=== PATIENT | female | born 1985 | race Hispanic/Latino ===

== ENCOUNTER 2017-09-15 12:33 | Emergency (ER) | payer MEDICAID ==
[2017-09-15 12:51] VITALS: BP 147/74; PULSE 85; RESP 16; TEMP 98.3; O2SAT 98
--- NOTE | 2017-09-15 13:12 | ED PDOC ---
Arrival/HPI - General Chief Complaint: Eye Problem Time Seen by Provider: 09/15/17 13:11 Historian: Patient - History of Present Illness Narrative History of Present Illness (Text): 09/15/17 13:11 32 y/o female, no significant pmh, nkda, c/o Past Medical History - Psychiatric Hx Substance Use: No Family/Social History Smoking Status: Light Smoker < 10 Cigarettes Daily Hx Alcohol Use: Yes Frequency of alcohol use: Socially Hx Substance Use: No Allergies/Home Meds Allergies/Adverse Reactions: Allergies No Known Allergies Allergy (Verified 09/15/17 12:47) Home Medications: Home Meds Medication Instructions Recorded Confirmed No Known Home Med 09/15/17 09/15/17 Physical Exam Vital Signs Temp Pulse Resp BP Pulse Ox 09/15/17 12:48 98.3 F 85 16 147/74 98 Disposition/Present on Arrival - Present on Arrival History of DVT/PE: No History of Uncontrolled Diabetes: No Urinary Catheter: No History of Decub. Ulcer: No History Surgical Site Infection Following: None - Disposition
== END 2017-09-15 13:38 | disposition left against medical advice (07) ==
LOC: ED 12:33
DX: Z02.89 Encounter for other administrative examinations (principal); Z00.00 Encounter for general adult medical examination without abnormal findings

== ENCOUNTER 2017-09-15 13:51 | Emergency (ER) | payer MEDICAID ==
[2017-09-15 14:02] VITALS: BMI 24.7
[2017-09-15 14:04] VITALS: BP 134/71; PULSE 88; RESP 18; TEMP 98.7; O2SAT 99
--- NOTE | 2017-09-15 14:15 | ED PDOC ---
Arrival/HPI - General Chief Complaint: Eye Problem Time Seen by Provider: 09/15/17 14:10 Historian: Patient - History of Present Illness Narrative History of Present Illness (Text): 09/15/17 14:11 32 y/o female, no pmh, nkda, c/o bilateral eye itching and watery for the past 2 days with no change in soap/clothing/detergent. Itching, no pain, no change in vision, stated that she has redness at home, no dizziness, no eyelid swelling , no headache or neck pain, no trauma, no other medical or psychological complaints. Past Medical History - Provider Review Nursing Documentation Reviewed: Yes - Psychiatric Hx Substance Use: No - Anesthesia Hx Anesthesia: No Hx Anesthesia Reactions: Yes Hx Malignant Hyperthermia: Yes Family/Social History - Physician Review Nursing Documentation Reviewed: Yes Family/Social History: Unknown Family HX Smoking Status: Light Smoker < 10 Cigarettes Daily Hx Alcohol Use: Yes Hx Substance Use: No Allergies/Home Meds Allergies/Adverse Reactions: Allergies No Known Allergies Allergy (Verified 09/15/17 12:47) Review of Systems - Review of Systems Constitutional: absent: Fatigue, Fevers Eyes: Other (eye itching and watery). absent: Vision Changes ENT: absent: Hearing Changes Respiratory: absent: SOB, Cough Cardiovascular: absent: Chest Pain Gastrointestinal: absent: Abdominal Pain, Diarrhea, Nausea, Vomiting Skin: absent: Rash, Pruritis Neurological: absent: Headache, Dizziness Physical Exam Vital Signs Reviewed: Yes Vital Signs Temp Pulse Resp BP Pulse Ox 09/15/17 13:51 98.7 F 88 18 134/71 99 Temperature: Afebrile Blood Pressure: Normal Pulse: Regular Respiratory Rate: Normal Appearance: Positive for: Well-Appearing, Non-Toxic, Comfortable Pain Distress: None Mental Status: Positive for: Alert and Oriented X 3 - Systems Exam Head: Present: Atraumatic, Normocephalic Pupils: Present: PERRL Extroacular Muscles: Present: EOMI Conjunctiva: Present: Normal, Other (no conjunctivitis, no eyelid erythematous or swelling, no oozing or discharge, no visible tearing, FREOM without limitation or pain, no periorbital swelling or erythematous. ) Mouth: Present: Moist Mucous Membranes Neck: Present: Normal Range of Motion Respiratory/Chest: Present: Clear to Auscultation, Good Air Exchange. No: Respiratory Distress, Accessory Muscle Use Cardiovascular: Present: Regular Rate and Rhythm, Normal S1, S2. No: Murmurs Abdomen: Present: Normal Bowel Sounds. No: Tenderness, Distention, Peritoneal Signs Back: Present: Normal Inspection Upper Extremity: Present: Normal Inspection. No: Cyanosis, Edema Lower Extremity: Present: Normal Inspection. No: Edema Neurological: Present: GCS=15, Speech Normal, Motor Func Grossly Intact, Memory Normal Skin: Present: Warm, Dry, Normal Color. No: Rashes Psychiatric: Present: Alert, Oriented x 3, Normal Insight, Normal Concentration Medical Decision Making ED Course and Treatment: 09/15/17 14:13 -I explained to the patient that I don't see any signs of bacterial conjunctivitis or any conjunctivitis, will provide symptomatic treatment, no antibiotic or antiviral indicated. -Discharge home with zyrtec, bed rest, follow up with your own pmd and opthalmologist within 2 days, return to the ER for any new or worsening signs or symptoms. - PA / SURVEY DIRECTOR / Resident Statement /DO has reviewed & agrees with the documentation as recorded. Disposition/Present on Arrival - Present on Arrival Any Indicators Present on Arrival: No History of DVT/PE: No History of Uncontrolled Diabetes: No Urinary Catheter: No History of Decub. Ulcer: No History Surgical Site Infection Following: None - Disposition Have Diagnosis and Disposition been Completed?: Yes Diagnosis: Itchy eyes Disposition: HOME/ ROUTINE Disposition Time: 14:15 Patient Plan: Discharge Condition: GOOD Additional Instructions: -Discharge home with zyrtec, bed rest, follow up with your own pmd and opthalmologist within 2 days, return to the ER for any new or worsening signs or symptoms. Prescriptions: Cetirizine HCl [Zyrtec Allergy] 10 mg PO DAILY PRN #[id number] PRN Reason: Other Referrals: Gene Birch [Staff Provider] - Follow up with primary Forms: WORK NOTE
== END 2017-09-15 14:55 | disposition home or self-care (01) ==
LOC: ED 13:51
DX: H10.9 Unspecified conjunctivitis (principal); H57.8 Other specified disorders of eye and adnexa; F17.210 Nicotine dependence, cigarettes, uncomplicated